=== PATIENT | female | born 1945 | race Caucasian/White ===

== ENCOUNTER 2022-08-22 12:33 | Emergency (ER) | payer OTHER, MEDICARE, MEDICAID ==
[2022-08-22] MEDS: traMADol 50 MG Tab PO ONE (13:42)
[2022-08-22] MEDS: Acetaminophen 500 MG Tab PO ONE (13:42)
[2022-08-22 14:11] LABS: ESTIMATED GFR 67 mL/min (>60)
== END 2022-08-22 16:30 | disposition home or self-care (01) ==
LOC: FB.ED 12:33
DX: S42.031A Displaced fracture of lateral end of right clavicle, initial encounter for closed fracture (principal); V49.40XA Driver injured in collision with unspecified motor vehicles in traffic accident, initial encounter; Y92.410 Unspecified street and highway as the place of occurrence of the external cause
CPT/HCPCS: 36415; 73030; 73080; 73090; 80053; 85025; 85610; 85730; 99284; A9270; 99283

== ENCOUNTER 2023-03-10 14:49 | Emergency (ER) | payer MEDICARE, MEDICAID ==
[2023-03-10] MEDS ORDERED: Acetaminophen/HYDROcodone 325-5 MG Tab PO ONE (14:50)
[2023-03-10] MEDS: Morphine 4 MG/ML VIAL IM ONE ×2 (15:14→18:13)
[2023-03-10] MEDS: Ondansetron 4 MG Tab.DIS PO ONE ×2 (15:15→18:13)
== END 2023-03-10 18:40 | disposition home or self-care (01) ==
LOC: FB.ED 14:49
DX: S32.401A Unspecified fracture of right acetabulum, initial encounter for closed fracture (principal); S32.10XA Unspecified fracture of sacrum, initial encounter for closed fracture; S20.213A Contusion of bilateral front wall of thorax, initial encounter; F17.210 Nicotine dependence, cigarettes, uncomplicated; W01.10XA Fall on same level from slipping, tripping and stumbling with subsequent striking against unspecified object, initial encounter; Y92.59 Other trade areas as the place of occurrence of the external cause
CPT/HCPCS: 72192; 96372; 99284; A9270-GY; J2270; Q0162

== ENCOUNTER 2024-03-02 21:23 | Emergency (ER) | payer MEDICAID, MEDICARE ==
[2024-03-02] MEDS ORDERED: Sulfamethoxazole/Trimethoprim 800-160 MG Tab PO ONE (21:24)
[2024-03-02] MEDS: Ketorolac 30 MG/ML SDV IVPUSH ONE (21:56)
[2024-03-02 22:04] LABS: BASOPHILS ABSOLUTE AUTO 0.1 x10-3/uL (0.0-0.1); BASOPHILS PERCENT AUTO 0.5 % (0.2-1.5); EOSINOPHILS ABSOLUTE AUTO 0.5 x10-3/uL (0.0-0.8); EOSINOPHILS PERCENT AUTO 4.7 % (0.6-8.1); HEMATOCRIT 45.1 % (34.2-48.2); LYMPHOCYTES ABSOLUTE AUTO 1.7 x10-3/uL (1.0-4.4); LYMPHOCYTES PERCENT AUTO 17.4 % (18.4-52.1); MEAN CORPUSCULAR HEMOGLOBIN 30.3 pg (23.9-33.9); MEAN CORPUSCULAR HGB CONC 33.3 g/dL (31.9-34.8); MEAN CORPUSCULAR VOLUME 91.1 fL (76.7-100.5); MEAN PLATELET VOLUME 7.7 fL (7.1-12.4); MONOCYTES ABSOLUTE AUTO 0.8 x10-3/uL (0.3-1.0); MONOCYTES PERCENT AUTO 8.1 % (4.4-15.7); NEUTROPHILS ABSOLUTE AUTO 6.9 x10-3/uL (1.5-6.3); NEUTROPHILS PERCENT AUTO 69.3 % (30.8-76.2); PLATELET COUNT,PLT 285 x10(3)uL (151-488); RED BLOOD CELL COUNT 4.96 x10(6)uL (3.60-5.20); WHITE BLOOD CELL COUNT,WBC 9.9 x10-3/uL (3.0-10.3)
[2024-03-02 22:09] LABS: BLOOD UREA NITROGEN,BUN 19 mg/dL (7-18); BUN/CREATININE RATIO 23.8 (9-20); CALCIUM 8.2 mg/dL (8.6-10.2); CARBON DIOXIDE,CO2 26 mmol/L (21-32); CHLORIDE,CL 107 mmol/L (100-110); CREATININE 0.8 mg/dL (0.55-1.02); ESTIMATED GFR 76 mL/min (>60); GLUCOSE RANDOM 83 mg/dL (80-116); POTASSIUM,K 4.2 mmol/L (3.5-5.3); SODIUM,NA 140 mmol/L (135-145)
[2024-03-02 22:15] LABS: A/G RATIO 1.3; ALANINE AMINOTRANSFERASE,ALT 12 U/L (12-36); ALBUMIN 3.5 g/dL (3.2-4.6); ALKALINE PHOSPHATASE 77 IU/L (56-112); ASPARTATE AMNIOTRANSFERASE,AST 13 IU/L (5-25); BILIRUBIN TOTAL 0.4 mg/dL (0.1-1.3); PROTEIN TOTAL,TP 6.3 g/dL (6.0-8.0)
[2024-03-02 22:23] LABS: BILIRUBIN,URINE NEGATIVE (NEGATIVE); GLUCOSE,URINE >1000 mg/dL (NORMAL); KETONES,URINE NEGATIVE (NEGATIVE); LEUKOCYTE ESTERASE,URINE MODERATE (NEGATIVE); NITRITE,URINE POSITIVE (NEGATIVE); OCCULT BLOOD,URINE MODERATE (NEGATIVE); PROTEIN,URINE NEGATIVE (NEGATIVE); UROBILINOGEN,URINE 1 mg/dL (NEGATIVE)
[2024-03-02 22:29] LABS: APPEARANCE,URINE CLEAR (CLEAR); BACTERIA,URINE MANY (NS); COLOR,URINE YELLOW (YELLOW); RBC,URINE 0-5 (0-5); SQUAMOUS EPITHELIAL CELLS,UR FEW (NS,R,O); WBC,URINE 0-5 (0-5)
== END 2024-03-03 00:05 | disposition home or self-care (01) ==
LOC: FB.ED 21:23
DX: N39.0 Urinary tract infection, site not specified (principal); F17.210 Nicotine dependence, cigarettes, uncomplicated; Z79.899 Other long term (current) drug therapy; Z88.8 Allergy status to other drugs, medicaments and biological substances
CPT/HCPCS: 36415; 70450; 80053; 81001; 84484; 85025; 96374; 99284; A9270; J1885